=== PATIENT | male | born 1975 | race Hispanic/Latino ===

== ENCOUNTER 2018-11-21 19:43 | Emergency (ER) | payer SELFPAY ==
[~2018-11-21 19:43] MED LIST: HYDR25TA PO
[2018-11-21 20:16] LABS: APPEARANCE,URINE Clear (CLEAR); BILIRUBIN,URINE Negative (NEGATIVE); COLOR,URINE Dark Yellow (YELLOW); GLUCOSE, URINE (UA) >=1000 mg/dL (NEGATIVE); KETONES,URINE 15 mg/dL (NEGATIVE); LEUKOCYTE ESTERASE ,URINE Negative (NEGATIVE); NITRATE,URINE Negative (NEGATIVE); OCCULT BLOOD,URINE Moderate (NEGATIVE); PROTEIN,URINE 300 (NEGATIVE)
[2018-11-21 20:17] LABS: BASOPHILS % (AUTO) 0.8 % (0.0-5.0); HEMATOCRIT 50.7 % (42-54); LYMPHOCYTES % (AUTO) 12.6 % (21.0-51.0); MEAN CORPUSCULAR HEMOGLOBIN 31.8 pg (27.0-33.0); MEAN CORPUSCULAR HGB CONC 35.3 g/dL (32.0-36.0); MEAN CORPUSCULAR VOLUME 89.9 fL (79-99); MONOCYTES % (AUTO) 8.5 % (3.0-13.0); NEUTROPHILS % (AUTO) 78.1 % (40.0-77.0); NUCLEATED RED BLOOD CELLS 0.1 % (0.0-0.19); PLATELET COUNT (AUTO) 154 K/uL (130-400); RED BLOOD CELL COUNT(AUTO) 5.64 MIL/uL (4.50-6.20); RED CELL DISTRIBUTION WIDTH 13.7 % (11.0-15.5); WHITE BLOOD COUNT (AUTO) 7.7 K/uL (4.8-10.8)
[2018-11-21 20:26] LABS: CREATININE 1.1 mg/dL (0.5-1.5); POTASSIUM 3.8 mmol/L (3.5-5.1)
[2018-11-21 20:30] LABS: ALBUMIN 3.5 g/dL (3.5-5.0); BILIRUBIN,TOTAL 1.1 mg/dL (0.2-1.0); TOTAL PROTEIN, SERUM 7.8 g/dL (6.0-8.3)
[2018-11-21 20:32] LABS: BACTERIA,URINE Few /HPF (None Seen)
[2018-11-21 20:33] LABS: MUCUS,URINE Few LPF (None Seen); SQUAMOUS EPITHELIAL CELL,UR Few /HPF (0-2)
[2018-11-21] MEDS ORDERED: BISACODYL 10 MG SUPP.RECT RC ONE (20:41)
[2018-11-21] MEDS ORDERED: KETOROLAC TROMETHAMINE 30MG/ML ONE (20:41)
[2018-11-21] MEDS ORDERED: FAMOTIDINE/PF 20 MG/2 ML VIAL IV ONE (20:41)
[2018-11-21] MEDS ORDERED: ONDANSETRON HCL 4 MG/2 ML VIAL ONE (20:41)
[2018-11-21] MEDS ORDERED: SODIUM CHLORIDE 0.9% 1000ML 1,000 ML IV ONE ×2 (20:41→23:15)
[2018-11-21] MEDS ORDERED: HYOSCYAMINE SULFATE 0.125 MG TAB.SUBL SL ONE (23:16)
[2018-11-21] MEDS ORDERED: ACETAMINOPHEN 325 MG TAB ONE (23:29)
== END 2018-11-22 00:37 | disposition home or self-care (01) ==
LOC: EDH 19:43
DX: J10.1 Influenza due to other identified influenza virus with other respiratory manifestations (principal); E86.0 Dehydration; R10.84 Generalized abdominal pain; R11.2 Nausea with vomiting, unspecified; F41.9 Anxiety disorder, unspecified; I10 Essential (primary) hypertension; Z72.0 Tobacco use; Z87.442 Personal history of urinary calculi
CPT/HCPCS: 36415; 74018; 76705; 76770; 80053; 81001; 82550; 83690; 84484; 85025; 87804 ×2; 93005; 96361; 96374; 96375; 99284; J1885; J2405; J3490; J7030 ×2

== ENCOUNTER 2019-08-27 02:57 | Inpatient (IN) | payer SELFPAY ==
[~2019-08-27] VITALS: Ht 165.1 cm; Wt 81.6 kg
[2019-08-27] MEDS ORDERED: KETOROLAC TROMETHAMINE 30MG/ML ONE (03:03)
[2019-08-27] MEDS ORDERED: METOCLOPRAMIDE 10 MG/2 ML VIAL ONE (03:03)
[2019-08-27] MEDS ORDERED: SODIUM CHLORIDE 0.9% 1000ML 1,000 ML IV ONE ×2 (03:04→05:28)
[2019-08-27 03:13] LABS: BASOPHILS % (AUTO) 2.7 % (0.0-5.0); EOSINOPHILS % (AUTO) 1.6 % (0.0-8.0); HEMATOCRIT 50.2 % (42-54); LYMPHOCYTES % (AUTO) 24.7 % (21.0-51.0); MEAN CORPUSCULAR HGB CONC 34.1 g/dL (32.0-36.0); NUCLEATED RED BLOOD CELLS 0.1 % (0.0-0.19); PLATELET COUNT (AUTO) 281 K/uL (130-400); RED BLOOD CELL COUNT(AUTO) 5.34 MIL/uL (4.50-6.20); RED CELL DISTRIBUTION WIDTH 13.2 % (11.0-15.5)
[2019-08-27] MEDS ORDERED: DiphenhydrAMINE HCL 50 MG/ML VIAL ONE (03:13)
[2019-08-27] MEDS ORDERED: ONDANSETRON HCL 4 MG/2 ML VIAL ONE ×3 (03:14→04:49)
[2019-08-27 03:23] LABS: CREATININE 1.5 mg/dL (0.5-1.5); POTASSIUM 3.9 mmol/L (3.5-5.1)
[2019-08-27 03:27] LABS: ALBUMIN 4.1 g/dL (3.5-5.0); BILIRUBIN,TOTAL 0.4 mg/dL (0.2-1.0); TOTAL PROTEIN, SERUM 7.8 g/dL (6.0-8.3)
[2019-08-27 03:50] LABS: INR 1.12 (0.85-1.15); PROTHROMBIN TIME 11.7 SEC (9.6-11.6)
[2019-08-27] MEDS ORDERED: FAMOTIDINE/PF 20 MG/2 ML VIAL IV ONE (04:07)
[2019-08-27] MEDS ORDERED: LORAZEPAM 2 MG/ML 1 ML VIAL ONE (04:07)
[2019-08-27] MEDS ORDERED: SODIUM CHLORIDE 0.9% 500ML 500 ML IV ONE (04:50)
[2019-08-27] MEDS ORDERED: KETOROLAC TROMETHAMINE 15MG/ML ONE (04:50)
[2019-08-27] MEDS ORDERED: SODIUM CHLORIDE 0.9% 1000ML 1,000 ML IV SCH (05:26)
[2019-08-27] MEDS ORDERED: FENTANYL CITRATE PF 50 MCG/1 ML 2ML VIAL ONE (05:28)
[2019-08-27] MEDS ORDERED: KETOROLAC TROMETHAMINE 15MG/ML IV PRN (05:30)
[2019-08-27] MEDS ORDERED: ONDANSETRON HCL 4 MG/2 ML VIAL IV PRN (05:30)
[2019-08-27] MEDS ORDERED: MORPHINE SULFATE 4 MG/1ML SYG IV PRN (05:30)
[2019-08-27] MEDS ORDERED: LIDOCAINE PF 2% 5ML ABBOJECT ONE (05:47)
[2019-08-27] MEDS ORDERED: HYDRALAZINE HCL 20 MG/ML VIAL IV PRN (06:00)
[2019-08-27 06:04] LABS: APPEARANCE,URINE Clear (CLEAR); BILIRUBIN,URINE Negative (NEGATIVE); COLOR,URINE Yellow (YELLOW); GLUCOSE, URINE (UA) 500 mg/dL (NEGATIVE); KETONES,URINE 40 mg/dL (NEGATIVE); LEUKOCYTE ESTERASE ,URINE Negative (NEGATIVE); NITRATE,URINE Negative (NEGATIVE); OCCULT BLOOD,URINE Large (NEGATIVE); PH,URINE 5.5 (5.0-8.0); PROTEIN,URINE POS 1+ mg/dL (NEGATIVE)
[2019-08-27 06:13] LABS: BACTERIA,URINE Few /HPF (None Seen); MUCUS,URINE Few LPF (None Seen); SQUAMOUS EPITHELIAL CELL,UR 0-2 /HPF (0-2); WBC,URINE 0-1 /HPF (0-1)
--- NOTE | 2019-08-27 06:55 | NUR ---
Informed ALDO Rosa [employer] ANALYST regarding patient Lactic acid level recheck of 2.9 from 4.4. HE ordered rocephin 1g q24 hours. No other orders were ordered will monitor patient closely
[2019-08-27 08:00] VITALS: BP 179/88
[2019-08-27] MEDS ORDERED: ENOXAPARIN SODIUM 40 MG/0.4 ML SYRINGE SQ SCH (09:00)
[2019-08-27] MEDS ORDERED: FAMOTIDINE/PF 20 MG/2 ML VIAL IV SCH (09:00)
[2019-08-27] MEDS: METOCLOPRAMIDE 10 MG/2 ML VIAL IVP SCH ×2 (09:35→16:30)
[2019-08-27] MEDS ORDERED: CEFTRIAXONE SODIUM 2 GM VIAL IVP SCH (10:00)
[2019-08-27 12:00] VITALS: BP 171/111
[2019-08-27 16:00] VITALS: BP 169/107
[2019-08-27] MEDS ORDERED: TAMSULOSIN HCL 0.4 MG CAP.ER.24H ONE (17:24)
[2019-08-27 17:30] VITALS: BP 153/78
[2019-08-27] MEDS ORDERED: TAMSULOSIN HCL 0.4 MG CAP.ER.24H PO STA (17:31)
[2019-08-27] MEDS ORDERED: TAMSULOSIN HCL 0.4 MG CAP.ER.24H PO SCH (21:00)
--- NOTE | 2019-08-30 17:24 | NUR ---
INITIAL MET W PT AND FAMILY AT BEDSIDE, PT MOANING IN PAIN, VERY UNCOMFORTABLE LIVES WITH SPOUSE, CHILD & MOM, IS INDP OF ADLS, HAS HAD KIDNEY STONES SEVERAL TIMES IN THE PAST, DOES NOT HAVE A DOCTOR, [facility] AND MED COUPONS GIVEN, VIRI TO FOLLOW [facility] HOME Addendum: 08/30/19 at 1728 by JOSE PATTERSON RN CM Amended: Links added.
== END 2019-08-27 18:30 | disposition home or self-care (01) | DRG 694 ==
LOC: EDH 02:57 → EDHIP 02:58 → 3CH 05:56
PROVIDERS: ADMIT Internal Medicine; ATTEND Internal Medicine
DX: N13.2 Hydronephrosis with renal and ureteral calculous obstruction (principal); E87.2 Acidosis; I10 Essential (primary) hypertension; Z83.3 Family history of diabetes mellitus; Z87.442 Personal history of urinary calculi
CPT/HCPCS: 36415; 74176; 80053; 81001; 82360; 82550; 83605; 83690; 84484; 85025; 85610; 85730; G0378; J0696; J1200; J1650; J1885; J2001; J2060; J2270; J2405; J2765; J3010; J3490; J7030; J7040

== ENCOUNTER 2019-09-24 18:59 | Emergency (ER) | payer SELFPAY ==
[2019-09-24] MEDS ORDERED: ONDANSETRON HCL 4 MG/2 ML VIAL ONE (19:47)
[2019-09-24] MEDS ORDERED: MORPHINE SULFATE 4 MG/1ML SYG ONE (19:47)
[2019-09-24] MEDS ORDERED: SODIUM CHLORIDE 0.9% 1000ML 2,000 ML IV ONE (19:49)
[2019-09-24 19:53] LABS: BASOPHILS % (AUTO) 0.9 % (0.0-5.0); EOSINOPHILS % (AUTO) 0.7 % (0.0-8.0); HEMATOCRIT 47.2 % (42-54); LYMPHOCYTES % (AUTO) 17.1 % (21.0-51.0); MEAN CORPUSCULAR HEMOGLOBIN 31.5 pg (27.0-33.0); MEAN CORPUSCULAR HGB CONC 34.3 g/dL (32.0-36.0); MEAN CORPUSCULAR VOLUME 91.8 fL (79-99); MONOCYTES % (AUTO) 8.7 % (3.0-13.0); NEUTROPHILS % (AUTO) 72.6 % (40.0-77.0); NUCLEATED RED BLOOD CELLS 0.1 % (0.0-0.19); PLATELET COUNT (AUTO) 253 K/uL (130-400); RED BLOOD CELL COUNT(AUTO) 5.14 MIL/uL (4.50-6.20); RED CELL DISTRIBUTION WIDTH 13.5 % (11.0-15.5); WHITE BLOOD COUNT (AUTO) 14.9 K/uL (4.8-10.8)
[2019-09-24] MEDS ORDERED: ZOSYN 3.375GM+NS 50ML 50 ML IV ONE (20:02)
[2019-09-24 20:11] LABS: CREATININE 1.2 mg/dL (0.5-1.5); POTASSIUM 4.1 mmol/L (3.5-5.1)
[2019-09-24] MEDS ORDERED: IOHEXOL-350 50ML VIAL IV ONE (20:22)
[2019-09-24 20:26] LABS: ALBUMIN 3.7 g/dL (3.5-5.0); BILIRUBIN,TOTAL 0.5 mg/dL (0.2-1.0); TOTAL PROTEIN, SERUM 8.2 g/dL (6.0-8.3)
[2019-09-24] MEDS ORDERED: SODIUM CHLORIDE 0.9% 1000ML 1,000 ML IV ONE (21:36)
[2019-09-24] MEDS ORDERED: CLINDAMYCIN HCL 150 MG CAP ONE (21:37)
== END 2019-09-24 22:20 | disposition left against medical advice (07) ==
LOC: EDH 18:59
DX: L03.211 Cellulitis of face (principal); R73.9 Hyperglycemia, unspecified; I10 Essential (primary) hypertension; Z87.442 Personal history of urinary calculi; Z72.0 Tobacco use
CPT/HCPCS: 36415; 70487; 80053; 82010; 83605; 85025; 87040 ×2; 96365; 96366; 96375; 99285; J2270; J2405; J2543; J7030 ×2; Q9967

== ENCOUNTER 2019-09-25 06:12 | Inpatient (IN) | payer SELFPAY ==
[~2019-09-25] VITALS: Ht 167.6 cm; Wt 86.1 kg
[2019-09-25] MEDS ORDERED: SODIUM CHLORIDE 0.9% 1000ML 1,000 ML IV ONE ×2 (08:16→10:52)
[2019-09-25] MEDS ORDERED: ONDANSETRON HCL 4 MG/2 ML VIAL ONE (08:17)
[2019-09-25] MEDS ORDERED: CLINDAMYCIN 300 MG/D5W 50 ML 50 ML IV ONE (08:18)
[2019-09-25] MEDS ORDERED: MORPHINE SULFATE 4 MG/1ML SYG ONE (08:18)
[2019-09-25 08:20] LABS: BASOPHILS % (AUTO) 0.6 % (0.0-5.0); EOSINOPHILS % (AUTO) 0.3 % (0.0-8.0); HEMATOCRIT 46.2 % (42-54); LYMPHOCYTES % (AUTO) 12.2 % (21.0-51.0); MEAN CORPUSCULAR HEMOGLOBIN 32.1 pg (27.0-33.0); MEAN CORPUSCULAR HGB CONC 35.1 g/dL (32.0-36.0); MEAN CORPUSCULAR VOLUME 91.5 fL (79-99); MONOCYTES % (AUTO) 7.6 % (3.0-13.0); NEUTROPHILS % (AUTO) 79.3 % (40.0-77.0); PLATELET COUNT (AUTO) 229 K/uL (130-400); RED BLOOD CELL COUNT(AUTO) 5.06 MIL/uL (4.50-6.20); RED CELL DISTRIBUTION WIDTH 13.5 % (11.0-15.5); WHITE BLOOD COUNT (AUTO) 14.6 K/uL (4.8-10.8)
[2019-09-25 08:33] LABS: CREATININE 0.9 mg/dL (0.5-1.5); POTASSIUM 3.9 mmol/L (3.5-5.1)
[2019-09-25 08:38] LABS: ALBUMIN 3.7 g/dL (3.5-5.0); BILIRUBIN,TOTAL 0.7 mg/dL (0.2-1.0); TOTAL PROTEIN, SERUM 7.5 g/dL (6.0-8.3)
[2019-09-25] MEDS ORDERED: HYDRALAZINE HCL 20 MG/ML VIAL IV PRN (09:00)
[2019-09-25 10:22] LABS: HEMOGLOBIN A1C 9.5 % (4.0-6.0)
[2019-09-25] MEDS ORDERED: HYDRALAZINE HCL 20 MG/ML VIAL ONE (10:52)
[2019-09-25] MEDS ORDERED: MORPHINE SULFATE 2 MG/ML 1ML SYG ONE ×2 (11:13→17:45)
[2019-09-25] MEDS ORDERED: ACETAMINOPHEN EXTRA STRENGTH 500 MG TABLET ONE (13:54)
[2019-09-25] MEDS ORDERED: ACETAMINOPHEN 325 MG TAB PO PRN (14:00)
[2019-09-25] MEDS ORDERED: CLINDAMYCIN 600 MG/D5% WATER 50 ML IV ONE (15:26)
[2019-09-25] MEDS: ENOXAPARIN SODIUM 30 MG/0.3 ML SQ SCH (19:24)
[2019-09-25] MEDS: CLINDAMYCIN 600 MG/D5% WATER 50 ML IV SCH ×2 (19:24→20:05)
[2019-09-25] MEDS: SODIUM CHLORIDE 0.9% 1000ML 1,000 ML IV SCH ×2 (19:24→19:36)
[2019-09-25 19:43] VITALS: BP 163/90
[2019-09-25] MEDS ORDERED: ONDANSETRON HCL 4 MG/2 ML VIAL IVP PRN (20:00)
[2019-09-25] MEDS: KETOROLAC TROMETHAMINE 15MG/ML IV PRN (20:01)
[2019-09-26] VITALS (7 sets, daily range): BP systolic 144–177; BP diastolic 93–102
[2019-09-26] MEDS ORDERED: MORPHINE SULFATE 2 MG/ML 1ML SYG IVP ONE
[2019-09-26] MEDS ORDERED: MORPHINE SULFATE 2 MG/ML 1ML SYG ONE (00:09)
[2019-09-26] MEDS: CLINDAMYCIN 600 MG/D5% WATER 50 ML IV SCH ×4 (01:51→20:24)
[2019-09-26 05:21] LABS: BASOPHILS % (AUTO) 0.6 % (0.0-5.0); EOSINOPHILS % (AUTO) 0.2 % (0.0-8.0); HEMATOCRIT 43.9 % (42-54); LYMPHOCYTES % (AUTO) 13.8 % (21.0-51.0); MEAN CORPUSCULAR HEMOGLOBIN 31.8 pg (27.0-33.0); MEAN CORPUSCULAR HGB CONC 34.8 g/dL (32.0-36.0); MEAN CORPUSCULAR VOLUME 91.5 fL (79-99); MONOCYTES % (AUTO) 10.6 % (3.0-13.0); NEUTROPHILS % (AUTO) 74.8 % (40.0-77.0); NUCLEATED RED BLOOD CELLS 0.1 % (0.0-0.19); PLATELET COUNT (AUTO) 216 K/uL (130-400); RED CELL DISTRIBUTION WIDTH 13.4 % (11.0-15.5); WHITE BLOOD COUNT (AUTO) 10.1 K/uL (4.8-10.8)
[2019-09-26] MEDS: SODIUM CHLORIDE 0.9% 1000ML 1,000 ML IV SCH (05:33)
[2019-09-26 05:37] LABS: POTASSIUM 3.4 mmol/L (3.5-5.1)
[2019-09-26] MEDS: KETOROLAC TROMETHAMINE 15MG/ML IV PRN ×3 (05:43→15:34)
--- NOTE | 2019-09-26 06:12 | NUR ---
Nursing Note Paged doctor to get inform about potassium of 3.4 and no protocol. waiting for call back
[2019-09-26] MEDS ORDERED: POTASSIUM CHLORIDE 10% ELIXIR 20 MEQ/15 ML UDCUP PO PRN (06:45)
[2019-09-26] MEDS ORDERED: POTASSIUM CHLORIDE 20MEQ/100ML 100 ML IV PRN (06:45)
[2019-09-26] MEDS ORDERED: LIDOCAINE HCL-MPF 1% 2ML VIAL IV PRN (06:45)
[2019-09-26] MEDS: ENOXAPARIN SODIUM 30 MG/0.3 ML SQ SCH (08:34)
[2019-09-26] MEDS ORDERED: MORPHINE SULFATE 2 MG/ML 1ML SYG IVP PRN (11:15)
[2019-09-26] MEDS ORDERED: VANCOMYCIN PROTOCOL PER PHARMACY IV SCH (12:00)
[2019-09-26] MEDS ORDERED: VANCOMYCIN 1.25 GM in SODIUM CHLORIDE 0.9% 250 ML IV SCH (12:26)
[2019-09-26] MEDS ORDERED: COMPOUND IV REFRIGERATED 1 EACH IVSOLN MISC PRN (12:30)
[2019-09-26] MEDS: MORPHINE SULFATE 4 MG/1ML SYG IV PRN (14:37)
--- NOTE | 2019-09-26 15:27 | NUR ---
cm note met with patient and states resides athome with spouse independent with adls and self care, no dme. states works contract basis. provided with low income clinics in the area info and rx assist coupons, for md followup and meds. pt and spouse states they will followup with clinics. no dc needs. Addendum: 09/26/19 at 1531 by BENJAMÍN NEELY CM Amended: Links added.
--- NOTE | 2019-09-26 20:24 | NUR ---
MEDS PT VERBALIZES THAT HE IS SPITTING OUT PUS AND BLOOD FROM WHEN THE LITTLE BALLS ON HIS CHECK RUPTURE. SHIFT ASSESSMENT DONE, PLEASE REFER TO CHART. DUE MEDS ADMINISTERED, PT TOLERATED WELL. KEPT RESTED AND COMFORTABLE IN BED. WILL MONITOR PT. CALL LIGHT WITHIN REACH. Addendum: 09/26/19 at 2101 by JARROD HOROWITZ RN RN Amended: Links added.
[2019-09-26] MEDS: POTASSIUM CHLORIDE 20 MEQ ERTAB PO PRN ×2 (20:25→22:22)
[2019-09-26] MEDS: VANCOMYCIN 1.25 GM in SODIUM CHLORIDE 0.9% 250 ML IV SCH (21:15)
--- NOTE | 2019-09-26 22:22 | NUR ---
MEDS PT RESTING WELL, DENIES ANY CONCERNS AT THIS TIME. LAST DOSE OF POTASSIUM PO GIVEN, TOLERATED WELL. KEPT RESTED IN BED. WILL MONITOR PT.
[2019-09-27] MEDS: SODIUM CHLORIDE 0.9% 1000ML 1,000 ML IV SCH ×3 (00:04→14:43)
[2019-09-27] MEDS: MORPHINE SULFATE 4 MG/1ML SYG IV PRN (00:45)
--- NOTE | 2019-09-27 00:45 | NUR ---
PAIN PT IS AWAKE AND COMPLAINTS OF PAINS ON HIS FACE. MEDICATED WITH MORPHINE IV. KEPT RESTED AND COMFORTABLE IN BED. WILL RE-ASSESS PT.
[2019-09-27] MEDS: CLINDAMYCIN 600 MG/D5% WATER 50 ML IV SCH ×3 (01:32→14:36)
[2019-09-27 03:30] VITALS: BP 147/93
[2019-09-27 05:12] LABS: BASOPHILS % (AUTO) 0.6 % (0.0-5.0); EOSINOPHILS % (AUTO) 0.6 % (0.0-8.0); HEMATOCRIT 41.6 % (42-54); LYMPHOCYTES % (AUTO) 24.3 % (21.0-51.0); MEAN CORPUSCULAR HEMOGLOBIN 32.4 pg (27.0-33.0); MEAN CORPUSCULAR HGB CONC 34.8 g/dL (32.0-36.0); MEAN CORPUSCULAR VOLUME 92.9 fL (79-99); MONOCYTES % (AUTO) 15.1 % (3.0-13.0); NEUTROPHILS % (AUTO) 59.4 % (40.0-77.0); PLATELET COUNT (AUTO) 201 K/uL (130-400); RED BLOOD CELL COUNT(AUTO) 4.48 MIL/uL (4.50-6.20); RED CELL DISTRIBUTION WIDTH 13.5 % (11.0-15.5); WHITE BLOOD COUNT (AUTO) 7.8 K/uL (4.8-10.8)
--- NOTE | 2019-09-27 05:32 | NUR ---
ROUNDS PT RESTING WELL, NO DISTRESS NOTED. NO CONCERNS VERBALIZED. KEPT RESTED AND COMFORTABLE. FOR MORE CARE.
[2019-09-27 05:35] LABS: BILIRUBIN,TOTAL 0.5 mg/dL (0.2-1.0); POTASSIUM 3.8 mmol/L (3.5-5.1); TOTAL PROTEIN, SERUM 6.9 g/dL (6.0-8.3)
[2019-09-27 07:46] VITALS: BP 150/96
[2019-09-27] MEDS: VANCOMYCIN 1.25 GM in SODIUM CHLORIDE 0.9% 250 ML IV SCH (08:31)
[2019-09-27] MEDS: ENOXAPARIN SODIUM 30 MG/0.3 ML SQ SCH (08:33)
[2019-09-27 11:02] VITALS: BP 160/90
--- NOTE | 2019-09-27 15:00 | NUR ---
MD ROUNDS DR ANDINO VISITED WITH PATIENT. POC DISCUSSED. DR ANDINO ADVICES PATIENT TO GO SEE A DENTIST BECAUSE ACCORDING TO HIM, THIS PATIENT NEEDS A SPECIAL TYPE OF XR. PATIENT DISAGREES WITH DR ANDINO AND STATES HE DOES NOT NEED TO SEE A DENTIST. PATIENT SEEMS UPSET AT THE DRS RECOMMENDATION.
--- NOTE | 2019-09-27 15:35 | NUR ---
AMA PATIENT LEFT AMA. TAE CRUM, WENT INTO THE ROOM TO TAKE PATIENTS VS AND FOUND THE IV CATHETER ON THE FLOOR. CHARGE NURSE AND ADMITTING MD AWARE ALL BELONGINGS TAKEN WITH. PATIENT WAS NOT HAPPY WITH DR ANDINO'S SUGGESTION EVEN THOUGH HE WAS GOING TO BE DISCHARGED ANYWAY.
== END 2019-09-27 16:20 | disposition left against medical advice (07) | DRG 603 ==
LOC: EDH 06:12 → EDHIP 06:13 → OBSVTOIN 06:13 → 4CH 19:02
PROVIDERS: ADMIT Family Medicine; ATTEND Family Medicine
DX: L03.211 Cellulitis of face (principal); I10 Essential (primary) hypertension; Z53.29 Procedure and treatment not carried out because of patient's decision for other reasons; Z82.49 Family history of ischemic heart disease and other diseases of the circulatory system; Z83.3 Family history of diabetes mellitus; Z87.442 Personal history of urinary calculi
CPT/HCPCS: 36415; 80048; 80053; 83036; 83605; 85025; 87040; G0378; J0360; J1650; J1885; J2270; J2405; J3370; J3490; J7030

== ENCOUNTER 2020-06-23 05:32 | Inpatient (IN) | payer OTHER ==
[~2020-06-23] VITALS: Ht 167.6 cm; Wt 86.2 kg
[2020-06-23] MEDS ORDERED: ONDANSETRON HCL 4 MG/2 ML VIAL ONE ×3 (05:34→15:23)
[2020-06-23] MEDS ORDERED: KETOROLAC TROMETHAMINE 30MG/ML ONE (05:35)
[2020-06-23 06:21] LABS: BASOPHILS % (AUTO) 0.6 % (0.0-5.0); EOSINOPHILS % (AUTO) 1.5 % (0.0-8.0); HEMATOCRIT 52.2 % (42-54); LYMPHOCYTES % (AUTO) 30.4 % (21.0-51.0); MEAN CORPUSCULAR HEMOGLOBIN 31.7 pg (27.0-33.0); MEAN CORPUSCULAR HGB CONC 35.6 g/dL (32.0-36.0); MEAN CORPUSCULAR VOLUME 89.1 fL (79-99); MONOCYTES % (AUTO) 7.8 % (3.0-13.0); PLATELET COUNT (AUTO) 280 K/uL (130-400); RED BLOOD CELL COUNT(AUTO) 5.86 MIL/uL (4.50-6.20); RED CELL DISTRIBUTION WIDTH 12.7 % (11.0-15.5); WHITE BLOOD COUNT (AUTO) 9.7 K/uL (4.8-10.8)
[2020-06-23] MEDS ORDERED: METOCLOPRAMIDE 10 MG/2 ML VIAL ONE (06:32)
[2020-06-23] MEDS ORDERED: DiphenhydrAMINE HCL 50 MG/ML VIAL ONE (06:33)
[2020-06-23 06:40] LABS: ALBUMIN 4.3 g/dL (3.5-5.0); BILIRUBIN,TOTAL 0.5 mg/dL (0.2-1.0); CREATININE 1.6 mg/dL (0.5-1.5); POTASSIUM 3.8 mmol/L (3.5-5.1)
[2020-06-23 07:57] LABS: APPEARANCE,URINE Clear (CLEAR); BILIRUBIN,URINE Negative (NEGATIVE); COLOR,URINE Yellow (YELLOW); GLUCOSE, URINE (UA) >=1000 mg/dL (NEGATIVE); KETONES,URINE 15 mg/dL (NEGATIVE); LEUKOCYTE ESTERASE ,URINE Negative (NEGATIVE); NITRATE,URINE Negative (NEGATIVE); OCCULT BLOOD,URINE Small (NEGATIVE); PROTEIN,URINE Negative (NEGATIVE)
[2020-06-23] MEDS ORDERED: INSULIN HUMULIN R 100 UNIT/ML 3ML ONE ×3 (07:57→20:10)
[2020-06-23 08:13] LABS: BACTERIA,URINE Rare /HPF (None Seen); SQUAMOUS EPITHELIAL CELL,UR Rare /HPF (0-2); WBC,URINE 0-1 /HPF (0-1)
[2020-06-23] MEDS ORDERED: HYDROCODONE/ACETAMINOPHEN 5/325 MG TAB ONE (08:16)
[2020-06-23] MEDS ORDERED: TAMSULOSIN HCL 0.4 MG CAP.ER.24H ONE (08:16)
[2020-06-23] MEDS ORDERED: FENTANYL CITRATE PF 50 MCG/1 ML 2ML VIAL ONE ×2 (08:53→09:32)
[2020-06-23] MEDS ORDERED: ONDANSETRON HCL 4 MG/2 ML VIAL IVP PRN (10:15)
[2020-06-23] MEDS ORDERED: GLUCAGON 1MG KIT 1 MG ML IM PRN (10:15)
[2020-06-23] MEDS ORDERED: HYDRALAZINE HCL 20 MG/ML VIAL IV PRN (10:15)
[2020-06-23] MEDS ORDERED: DEXTROSE 50%-WATER 50 ML DISP.SYRIN IV PRN (10:15)
[2020-06-23] MEDS ORDERED: MORPHINE SULFATE 4 MG/1ML SYG IV PRN ×2 (10:15→18:00)
[2020-06-23] MEDS: SODIUM CHLORIDE 0.9% 1000ML 1,000 ML IV SCH (10:30)
[2020-06-23] MEDS ORDERED: HYDROMORPHONE HCL 0.5 MG/0.5 ML ML IVP PRN (10:45)
[2020-06-23] MEDS ORDERED: HYDROMORPHONE HCL 0.5 MG/0.5 ML ML ONE ×2 (11:06→16:46)
[2020-06-23] MEDS ORDERED: INSULIN HUMULIN R 100 UNIT/ML 3ML SQ SCH (11:30)
[2020-06-23 11:37] LABS: HEMOGLOBIN A1C 9.3 % (4.0-6.0)
[2020-06-23] MEDS ORDERED: MORPHINE SULFATE 4 MG/1ML SYG ONE ×2 (14:07→20:10)
[2020-06-23 15:54] LABS: AMPHET/METH SCREEN,URINE NEGATIVE (NEGATIVE); BARBITURATE SCREEN, URINE NEGATIVE (NEGATIVE); BENZODIAZEPINES SCREEN,URINE NEGATIVE (NEGATIVE); CANNABINOID SCREEN,URINE POSITIVE (NEGATIVE); COCAINE SCREEN,URINE NEGATIVE (NEGATIVE); OPIATE SCREEN,URINE POSITIVE (NEGATIVE); PHENCYCLIDINE SCREEN,URINE NEGATIVE (NEGATIVE)
[2020-06-23] MEDS ORDERED: FAMOTIDINE/PF 20 MG/2 ML VIAL IV ONE (20:15)
[2020-06-23] MEDS ORDERED: FAMOTIDINE/PF 20 MG/2 ML VIAL IV SCH (21:00)
[2020-06-23 23:00] VITALS: BP 167/110
[2020-06-24] MEDS: SODIUM CHLORIDE 0.9% 1000ML 1,000 ML IV SCH (00:34)
[2020-06-24 03:00] VITALS: BP 135/106
[2020-06-24 06:01] LABS: BASOPHILS % (AUTO) 0.3 % (0.0-5.0); EOSINOPHILS % (AUTO) 0.1 % (0.0-8.0); HEMATOCRIT 48.1 % (42-54); LYMPHOCYTES % (AUTO) 8.9 % (21.0-51.0); MEAN CORPUSCULAR HEMOGLOBIN 31.6 pg (27.0-33.0); MEAN CORPUSCULAR HGB CONC 35.1 g/dL (32.0-36.0); MEAN CORPUSCULAR VOLUME 89.9 fL (79-99); NEUTROPHILS % (AUTO) 82.9 % (40.0-77.0); PLATELET COUNT (AUTO) 220 K/uL (130-400); RED BLOOD CELL COUNT(AUTO) 5.35 MIL/uL (4.50-6.20); RED CELL DISTRIBUTION WIDTH 13.1 % (11.0-15.5)
[2020-06-24 06:15] LABS: INR 1.04 (0.85-1.15); PROTHROMBIN TIME 11.2 SEC (9.6-11.6)
[2020-06-24 06:53] LABS: ALBUMIN 3.6 g/dL (3.5-5.0); BILIRUBIN,TOTAL 0.7 mg/dL (0.2-1.0); CREATININE 1.8 mg/dL (0.5-1.5); POTASSIUM 4.2 mmol/L (3.5-5.1)
--- NOTE | 2020-06-24 07:40 | NUR ---
PT REFUSING NEPHROSTOMY TUBE.
[2020-06-24 07:56] VITALS: BP 170/110
[2020-06-24] MEDS ORDERED: DEXTROSE 50%-WATER 50 ML DISP.SYRIN IV PRN (08:15)
[2020-06-24] MEDS ORDERED: GLUCAGON 1MG KIT 1 MG ML IM PRN (08:15)
[2020-06-24] MEDS ORDERED: HYDRALAZINE HCL 20 MG/ML VIAL IV PRN (08:15)
[2020-06-24] MEDS ORDERED: AMLODIPINE BESYLATE 5 MG TAB PO SCH (09:00)
[2020-06-24] MEDS ORDERED: TAMSULOSIN HCL 0.4 MG CAP.ER.24H PO SCH (09:00)
--- NOTE | 2020-06-24 09:00 | NUR ---
PATIENT LEFT AMA PATIENT REFUSED NEPHROSTOMY TUBE AND DECIDED TO LEAVE AMA. J CARLOS AND I EDUCATED PATIENT ON THE NEED FOR NEPHROSTOMY TUBE ADVISED BY DR CHRISTOPHER TOO.
[2020-06-24] MEDS ORDERED: INSULIN HUMULIN R 100 UNIT/ML 3ML SQ SCH (11:30)
== END 2020-06-24 09:15 | disposition home or self-care (01) | DRG 694 ==
LOC: EDH 05:32 → EDHIP 05:33 → 3DH 21:39
PROVIDERS: ADMIT Hospitalist; ATTEND Hospitalist
DX: N13.2 Hydronephrosis with renal and ureteral calculous obstruction (principal); D72.829 Elevated white blood cell count, unspecified; E86.0 Dehydration; E11.65 Type 2 diabetes mellitus with hyperglycemia; I10 Essential (primary) hypertension; F19.10 Other psychoactive substance abuse, uncomplicated; Z87.442 Personal history of urinary calculi; Z83.3 Family history of diabetes mellitus; Z79.899 Other long term (current) drug therapy
CPT/HCPCS: 36415; 74176; 80053; 80305; 81001; 82948; 83036; 85025; 85610; 85730; G0378; J0360; J1170; J1200; J1815; J1885; J2270; J2405; J2765; J3010; J3490; J7030